=== PATIENT | female | born 1970 | race Caucasian/White ===

== ENCOUNTER 2021-03-27 14:28 | Emergency (ER) | payer BC ==
[2021-03-27 15:16] LABS: PTT,PARTIAL THROMBOPLSTIN TIME 32.8 SEC (25.6-32.8)
[2021-03-27 15:26] LABS: CHLORIDE,CL 100 mmol/L (98-107); SODIUM,NA 139 mmol/L (136-145)
[2021-03-27 15:27] LABS: ANION GAP 15.2 mmol/L (5-15)
== END 2021-03-27 15:56 | disposition home or self-care (01) ==
LOC: VM.ED 14:28
DX: M79.662 Pain in left lower leg (principal); E66.9 Obesity, unspecified; Z68.30 Body mass index [BMI] 30.0-30.9, adult; Z88.5 Allergy status to narcotic agent; Z79.899 Other long term (current) drug therapy; Z72.0 Tobacco use
CPT/HCPCS: 36415; 80053; 83605; 85025; 85379; 85610; 85730; 99283